=== PATIENT | male | born 1995 | race African-American/Black ===

== ENCOUNTER 2022-02-17 14:38 | Emergency (ER) | payer OTHER ==
[~2022-02-17] VITALS: Ht 167.6 cm; Wt 93.3 kg
[2022-02-17] MEDS ORDERED: IBUP-1114 PO (14:47)
[2022-02-17] MEDS ORDERED: METH-1164 PO (15:50)
[2022-02-17] MEDS ORDERED: methocarbamoL 500 MG TAB PO ONE (15:50)
[2022-02-17] MEDS ORDERED: LIDO5DIS41 TD (15:50)
[2022-02-17] MEDS ORDERED: LIDOCAINE 5% (LIDODERM) PATCH TD ONE (15:50)
[2022-02-17 16:00] VITALS: BP 133/67
[2022-02-17] MEDS ORDERED: **NOTE PATIENT COMMENT** MISC XX SCH (21:00)
== END 2022-02-17 16:03 | disposition home or self-care (01) ==
LOC: M ED 14:38
DX: S29.012A Strain of muscle and tendon of back wall of thorax, initial encounter (principal); X58.XXXA Exposure to other specified factors, initial encounter; Y92.89 Other specified places as the place of occurrence of the external cause; F17.200 Nicotine dependence, unspecified, uncomplicated

== ENCOUNTER → 2025-01-25 | Outpatient (REF) ==
[~2025-01-25] MED LIST: IBUP-1114 PO; LIDO1ADH93 TD; METH-1164 PO
== END ==
LOC: M CAHLAB 17:42
DX: Z53.9 Procedure and treatment not carried out, unspecified reason (principal)